=== PATIENT | male | born 1950 | race African-American/Black ===

== ENCOUNTER 2018-01-14 06:45 | Day surgery (SDC) | payer OTHER ==
[~2018-01-14] VITALS: Ht 167.6 cm; Wt 71.2 kg
[~2018-01-14 06:45] MED LIST: ALLOPURINOL100 MG PO; FAMOTIDINE40 M1 PO; VERAPAMIL HCL120 M1 PO
[2018-01-14] MEDS ORDERED: MOTRIN800 MG PO (09:50)
[2018-01-14] MEDS ORDERED: PERCOCET 5/325M1 TAB PO (09:50)
[2018-01-14 10:09] VITALS: BP 101/71
== END 2018-01-14 10:30 | disposition home or self-care (01) ==
LOC: ORM 06:45
PROVIDERS: ATTEND Surgery
DX: K40.90 Unilateral inguinal hernia, without obstruction or gangrene, not specified as recurrent (principal)
CPT/HCPCS: C9290

== ENCOUNTER 2019-04-06 | Day surgery (SDC) | payer OTHER ==
[~2019-04-06] MED LIST changes: +MOTRIN800 MG PO; +NAPROXEN250 MG PO; +PERCOCET 5/325M1 TAB PO; +VOLTAREN - GENE75 MG PO
== END 2019-04-06 09:24 | disposition home or self-care (01) ==
DX: K63.5 Polyp of colon (principal); K57.30 Diverticulosis of large intestine without perforation or abscess without bleeding; K64.8 Other hemorrhoids; I10 Essential (primary) hypertension